=== PATIENT | male | born 2000 | race Caucasian/White ===

== ENCOUNTER 2019-04-07 02:30 | Emergency (ER) | payer SELFPAY ==
[~2019-04-07] VITALS: Ht 180.3 cm; Wt 112.0 kg
[2019-04-07 02:39] VITALS: BP 153/112; Ht 180.3 cm; Wt 112.0 kg
== END 2019-04-07 03:25 | disposition home or self-care (01) ==
LOC: ED 02:30
DX: S01.81XA Laceration without foreign body of other part of head, initial encounter (principal); S09.8XXA Other specified injuries of head, initial encounter; X58.XXXA Exposure to other specified factors, initial encounter; Y93.89 Activity, other specified; Y92.89 Other specified places as the place of occurrence of the external cause; Y99.8 Other external cause status